=== PATIENT | female | born 1990 | race Two or more races ===

== ENCOUNTER 2021-05-06 11:12 | Emergency (ER) | payer MEDICAID ==
[~2021-05-06] VITALS: Ht 149.9 cm; Wt 116.4 kg
[~2021-05-06 11:12] MED LIST: LIDO20SO16 PO; METO-292 PO
[2021-05-06] MEDS ORDERED: ketorolac tromethamine 15mg/ml inj. IM ONE (14:55)
[2021-05-06 15:16] LABS: BASOPHILS # (AUTO) 0.1 X10'3 (0-0.2); BASOPHILS % (AUTO) 0.6 % (0-1); EOSINOPHILS # (AUTO) 0.1 X10'3 (0-0.9); EOSINOPHILS % (AUTO) 1.2 % (0-6); HEMOGLOBIN 13.6 g/dl (12.0-16.0); LYMPHOCYTES # (AUTO) 1.6 X10'3 (1.1-4.8); LYMPHOCYTES % (AUTO) 19.5 % (21-51); MEAN CORPUSCULAR VOLUME 82.4 FL (78-98); MEAN PLATELET VOLUME 9.4 FL (7.4-10.4); MONOCYTES # (AUTO) 0.4 X10'3 (0-0.9); MONOCYTES % (AUTO) 5.1 % (2-12); NEUTROPHILS % (AUTO) 73.6 % (42-75); PLATELET COUNT 200 X10'3 (140-440); RED BLOOD COUNT 4.85 X10'6 (4.20-5.60); RED CELL DISTRIBUTION WIDTH 21.8 % (11.5-14.5); WHITE BLOOD COUNT 8.2 X10'3 (4.5-11.0)
[2021-05-06 15:26] LABS: PARTIAL THROMBOPLASTIN TIME 28 SECONDS (22-32)
[2021-05-06 15:28] LABS: ALANINE AMINOTRANSFERASE 34 U/L (12-78); ALBUMIN 3.4 G/DL (3.4-5.0); ALBUMIN/GLOBULIN RATIO 0.9 (1.1-1.5); ALKALINE PHOSPHATASE 67 IU/L (46-116); ANION GAP 10 (8-16); ASPARTATE AMINO TRANSFERASE 17 U/L (10-37); BILIRUBIN,TOTAL 0.4 MG/DL (0.1-1.0); BLOOD UREA NITROGEN 7 MG/DL (7-18); BUN/CREATININE RATIO 8.4 (6.6-38.0); CALCIUM 8.5 MG/DL (8.5-10.1); CHLORIDE 104 MMOL/L (99-107); CREATININE 0.83 MG/DL (0.40-0.90); GLUCOSE 88 MG/DL (70-104); LIPASE 60 U/L (73-393); POTASSIUM 3.9 MMOL/L (3.5-5.1); SODIUM 139 MMOL/L (135-145); TOTAL CARBON DIOXIDE 24.7 MMOL/L (24-32); TOTAL PROTEIN 7.4 G/DL (6.4-8.2); eGFR 80 ML/MIN
[2021-05-06 15:57] VITALS: BP 122/63
[2021-05-06 16:04] LABS: CLARITY,URINE TURBID (Clear); COLOR,URINE YELLOW (Yellow); GLUCOSE, URINE NEGATIVE (Neg); KETONES,URINE TRACE mg/dl (Neg); LEUKOCYTE ESTERASE ,URINE NEGATIVE (Neg); NITRITES, URINE NEGATIVE (Neg); OCCULT BLOOD,URINE LARGE (Neg); PROTEIN,URINE NEGATIVE (Neg); UROBILINOGEN,URINE 0.2 E.U/dL (0.2-1.0)
[2021-05-06 16:07] LABS: UA COLLECTION TYPE CLN CATCH MIDSTREAM
[2021-05-06 16:11] LABS: BACTERIA,URINE 2+ /HPF (Neg); MUCUS STRANDS MANY /LPF (Neg); RBC,URINE 0-2 /HPF (0-2); SQUAMOUS EPITHELIAL CELL,UR MANY /LPF (FEW); WBC,URINE 0-4 /HPF (0-4)
[2021-05-06 16:27] LABS: ANISOCYTOSIS 3+; PLATELET ESTIMATE NORMAL
[2021-05-06 16:28] LABS: ELLIPTOCYTES FEW; LARGE PLATELETS FEW; POIKILOCYTOSIS FEW; SPHEROCYTES 1+
[2021-05-06 16:42] LABS: URINE HCG NEGATIVE (NEG)
== END 2021-05-06 17:02 | disposition home or self-care (01) ==
LOC: ER 11:15
DX: R10.84 Generalized abdominal pain (principal); N93.9 Abnormal uterine and vaginal bleeding, unspecified; R11.0 Nausea; Z79.899 Other long term (current) drug therapy
CPT/HCPCS: 36415; 71045; 80053; 81001; 81025; 83690; 85008; 85025; 85610; 85730; 96372; 99284; J1885

== ENCOUNTER 2022-06-25 14:12 | Emergency (ER) | payer MEDICAID ==
[~2022-06-25] VITALS: Ht 149.9 cm; Wt 116.4 kg
[2022-06-25 14:18] VITALS: BP 142/93
[2022-06-25] MEDS ORDERED: LIDOcaine 1% 30ml preserv. free vial SQ STA (16:17)
[2022-06-25] MEDS ORDERED: penicillin V potassium 500mg tablet PO ONE (16:20)
[2022-06-25] MEDS ORDERED: PENI500T2 PO (17:11)
== END 2022-06-25 17:47 | disposition home or self-care (01) ==
LOC: ER 14:12
DX: O99.612 Diseases of the digestive system complicating pregnancy, second trimester (principal); K04.7 Periapical abscess without sinus; R50.9 Fever, unspecified; Z3A.14 14 weeks gestation of pregnancy; Z79.2 Long term (current) use of antibiotics; Z79.899 Other long term (current) drug therapy
CPT/HCPCS: 41800; 99284